=== PATIENT | male | born 1960 | race Caucasian/White ===

== ENCOUNTER 2021-05-20 14:59 | Outpatient (CLI) | payer OTHER ==
[2021-05-20 16:10] LABS: Anion Gap 20 mmol/L (10-20); BUN (Urea Nitrogen) 14 mg/dL (8.4-25.7); Calc. Creatinine Clearance 0 mL/min (70-130); Calcium 9.9 mg/dL (7.8-10.44); Carbon Dioxide 23 mmol/L (22-29); Chloride 98 mmol/L (98-107); Glucose 180 mg/dL (70-105); Potassium 4.4 mmol/L (3.5-5.1); Sodium 137 mmol/L (136-145)
[2021-05-20 23:44] LABS: Cardiac Risk 4.6 (Less than 4.5); LDL Cholesterol, Calculated 137 mg/dL
[2021-05-20 23:45] LABS: Hemoglobin A1c 7.9 % (4.0-6.0)
[2021-05-21 00:44] LABS: Triglycerides 232 mg/dL (Less than 150)
[2021-05-21 00:50] LABS: Cholesterol 232 mg/dl (< 200 Desired); HDL Cholesterol 51 mg/dL (>60 Neg Risk)
== END 2021-05-20 15:00 | disposition home or self-care (01) ==
LOC: NAV ERS 14:59 → NAV LAB 15:00
PROVIDERS: ATTEND Family Medicine
DX: E78.5 Hyperlipidemia, unspecified (principal); E11.69 Type 2 diabetes mellitus with other specified complication; E11.29 Type 2 diabetes mellitus with other diabetic kidney complication; E11.59 Type 2 diabetes mellitus with other circulatory complications; R80.9 Proteinuria, unspecified; I10 Essential (primary) hypertension
CPT/HCPCS: 36415; 80048; 80061; 83036

== ENCOUNTER 2024-02-23 20:33 | Emergency (ER) | payer BC, OTHER | END 2024-02-23 22:59 | disposition home or self-care (01) | LOC: NAV ERS 20:33 | DX: E11.649 Type 2 diabetes mellitus with hypoglycemia without coma (principal); Z79.84 Long term (current) use of oral hypoglycemic drugs | CPT/HCPCS: 36416; 99283 ==